=== PATIENT | female | born 1960 | race African-American/Black ===

== ENCOUNTER 2021-02-23 12:30 | Day surgery (SDC) | payer OTHER ==
[2021-02-23] MEDS ORDERED: Depo-Medrol 40 MG/ML IM ONE (12:31)
[2021-02-23] MEDS ORDERED: Sodium Chloride 0.9(Preservative Free) 10 ML IJ ONE (12:31)
--- NOTE | 2021-02-23 15:13 | XRAY ---
Indication: Left L4-S1 transforaminal KELVIN. Intraoperative fluoroscopy provided for 1 minute 16 seconds. 3 digital spot images submitted for interpretation demonstrate posterior needle tips projecting over the expected left L4 and L5 nerve roots. Small amount of contrast injected for needle tip placement. Correlate with intraoperative findings/report.
[2021-02-23] MEDS ORDERED: Lactated Ringers 1,000 ML IV ONE (16:33)
--- NOTE | 2021-02-23 16:40 | XRAY ---
1 minute and 16 seconds fluoroscopy time in surgery for left L4-S1 transforaminal KELVIN.
== END 2021-02-23 15:04 | disposition home or self-care (01) ==
LOC: SDC-PAIN 12:30
PROVIDERS: ATTEND Psychiatry & Neurology Pain Medicine
DX: M54.16 Radiculopathy, lumbar region (principal); I10 Essential (primary) hypertension; E66.9 Obesity, unspecified; Z79.899 Other long term (current) drug therapy
CPT/HCPCS: 64483; 64484; 72100; 77003; J1030; Q9966